=== PATIENT | female | born 1995 | race Native Hawaiian/Other Pacific Islander ===

== ENCOUNTER 2019-10-19 19:14 | Emergency (ER) | payer OTHER ==
[~2019-10-19] VITALS: Ht 160 cm; Wt 65.3 kg
[2019-10-19] MEDS ORDERED: NITROFURANTOIN (MACROBID) 100 MG CAP PO ONE (20:30)
[2019-10-19 21:01] VITALS: BP 132/84
[2019-10-19] MEDS ORDERED: MACR100C43 PO (21:04)
== END 2019-10-19 21:33 | disposition home or self-care (01) ==
LOC: M ED 19:14
DX: N30.00 Acute cystitis without hematuria (principal); F17.200 Nicotine dependence, unspecified, uncomplicated